=== PATIENT | female | born 1990 | race Caucasian/White ===

== ENCOUNTER 2017-11-02 19:04 | Emergency (ER) | payer MEDICAID ==
--- NOTE | 2017-11-02 19:41 | PD ---
HPI Chief Complaint Lower abdominal pain, patient was transferred from the [facility] Date Seen: Nov 02, 2017 Time Seen: 19:30 Travel History International Travel<30 Days: No Contact w/Intl Traveler<30Days: No Known Affected Area: No History of Present Illness HPI Patient 27-year-old white female 2526 weeks' gestation who sees Dr. Kam for care. She was transferred from [facility] because she presented there with abdominal pain. Patient to call Dr. Kam and she was told to go to the emergency room which she did the wrong one ,she went to [place] they called to transfer here. She denies bleeding or leakage of fluid. heart tones are reactive for 25 weeks and no contractions seen Weeks Gestation: 25 Para: 0 : 2 Miscarriage: 1 History Past Medical History Narrative Medical Hepatitis C Obstetric History Obstetric History 1 early loss Social History Narrative Social History Patient is a multidrug abuse or user is on Subutex now is seen Dr. Kam because of this situation, she smokes pack cigarettes a day Tobacco Use: Yes Substance Abuse: Yes Allergies-Medications (Allergen,Severity, Reaction): Coded Allergies: No Known Allergies (Unverified , 11/02/17) Review of Systems General / Constitutional: No: Fever, Weight Gain, Chills, Other Eyes: No: Diploplia, Blurred Vision, Visual changes, Pain, Photophobia HENT: No: Headaches, Vertigo, Lightheadedness Cardiovascular: No: Irregular Rhythm, Chest Pain or Discomfort, Palpitations, Tachycardia, Syncope, Varicosities, Edema, Cyanosis Respiratory: No: Cough, Short of Breath, Other Gastrointestinal: Abdominal Pain, No: Nausea, Vomiting, Diarrhea Genitourinary: No: Decreased Urinary Output, Oliguria Musculoskeletal: No: Limited ROM, Weakness, Cramping, Edema, Pain Skin: No Rash, No Itching, No Dryness, No Lumps, No Change in Pigmentation, No Change in Nails, No Alopecia, No Lesions Neurologic: No: Weakness, Dizziness, Syncope, Focal Abnormalities, Coordination Problem, Headache, Slurred Speech, Seizures Psychiatric: No: Depression, Suicidal Ideations, Homicidal Ideation Endocrine: No: Heat Intolerance, Cold Intolerance, Polydipsia, Polyuria, Other Physical Exam Narrative GENERAL: Well-nourished, well-developed patient. SKIN: Warm and dry. HEAD: Normocephalic and atraumatic. EYES: No scleral icterus. No injection or drainage. ENT: No nasal drainage noted. Mucous membranes pink. Airway patent. NECK: Supple, trachea midline. No JVD. CARDIOVASCULAR: Regular rate and rhythm without murmurs, gallops, or rubs. RESPIRATORY: Breath sounds equal bilaterally. No accessory muscle use. BREASTS: Bilateral exam showed no masses , no retractions, no nipple discharge. ABDOMEN/GI: Abdomen soft, non-tender, bowel sounds present, no rebound, no guarding Gravid to [25-] weeks size Fundal Height: [-25] GENITOURINARY: External Genitalia: intact and normal in appearance BUS glands: [-] Cervix: [post-] Dilatation: [-closed] Effacement: [-thick] Station: [-3] Membranes: [intact ] Uterine Contractions: [none-] FHT's: Category: [1-] Baseline: [-133] Reactive: [R-] Variability: [mod-] Decels: [-none] EXTREMITIES: No cyanosis or edema. BACK: Nontender without obvious deformity. No CVA tenderness. NEUROLOGICAL: Awake and alert. Motor and sensory grossly within normal limits. Five out of 5 muscle strength in all muscle groups. Normal speech. Data Data Orders Orders Urinalysis - C+S If Indicated (11/02/17 19:22) Comprehensive Metabolic Panel (11/02/17 19:31) Labs Urine dipstick on OB ED is negative CMP/ liver enzymes WNL MDM Interpretation(s) Patient 27-year-old white female at 25-26 weeks who presents with lower abdominal pain as transfer patient from [facility]. She denies leakage or bleeding. heart tones are very reactive 25 weeks and there are no contractions. Urinalysis negative status history is hepatitis C denies any other medical problems. She is a known drug abuser and is on Subutex now through Dr Juarez so this goes along with her hepatitis C history. We'll check a CMP to make sure liver enzymes within normal limits [CMP WNL] Plan Plan to discharge patient home to increase bedrest, increase her fluid intake to hydrate. To follow-up with Dr. Juarez take medications prescribed Diagnosis Diagnosis: Primary Impression: Abdominal cramping affecting Additional Impression: Drug abuse during Disposition: 01 DISCHARGE HOME Condition: Stable Lion Persaud II, MD Nov 02, 2017 19:41
[2017-11-02] MEDS ORDERED: PROCHLORPERAZINE INJ 10 MG/2 ML VIAL IM ONE (19:45)
[2017-11-02] MEDS ORDERED: hydrOXYzine HCL 50 MG/ML VIAL IM ONE (19:45)
[2017-11-02 20:22] LABS: BACTERIA, URINE RARE /hpf; BILIRUBIN, URINE NEG (NEG); BLOOD, URINE NEG (NEG); GLUCOSE,URINE NEG (NEG); KETONE, URINE NEG (NEG); MUCUS URINE FEW /lpf (OCC); NITRITE,URINE NEG (NEG); PH, URINE 6.5 (5.0-8.5); SQUAMOUS EPITHELIAL CELL URINE 5 /hpf (0-5); URINE COLOR YELLOW (YELLW/STRAW); URINE LEUKOCYTE ESTERASE NEG (NEG)
[2017-11-02 20:35] LABS: AST (GOT) 28 U/L (15-37); BICARBONATE 23.9 MEQ/L (21.0-32.0); BLOOD UREA NITROGEN 8 MG/DL (7-18); CHLORIDE 107 MEQ/L (98-107); CREATININE 0.56 MG/DL (0.50-1.00); GLOMERULAR FILTRATION RATE 130 ML/MIN (>89); GLUCOSE,RANDOM 81 MG/DL (74-106); SODIUM (NA) 139 MEQ/L (136-145)
[2017-11-02 20:38] LABS: ALKALINE PHOSPHATASE 81 U/L (45-117); ALT (GPT) 38 U/L (10-53); TOTAL BILIRUBIN ADULT 0.2 MG/DL (0.2-1.0)
== END 2017-11-02 20:48 | disposition home or self-care (01) ==
LOC: HOBED 19:04
DX: R10.30 Lower abdominal pain, unspecified (principal); O26.92 Pregnancy related conditions, unspecified, second trimester; O99.322 Drug use complicating pregnancy, second trimester; F19.10 Other psychoactive substance abuse, uncomplicated; F17.210 Nicotine dependence, cigarettes, uncomplicated; B19.20 Unspecified viral hepatitis C without hepatic coma; O98.412 Viral hepatitis complicating pregnancy, second trimester; Z3A.25 25 weeks gestation of pregnancy
CPT/HCPCS: 36415; 80053; 81001; 96372; 99284; J3410

== ENCOUNTER 2018-01-29 14:06 | Inpatient (IN) | payer MEDICAID ==
[2018-01-29] VITALS (7 sets, daily range): BP systolic 102–113; BP diastolic 57–60; PULSE 66–71; RESP 17–18; TEMP 98.1
--- NOTE | 2018-01-29 15:00 | PD.PN.STU ---
Subjective Remarks 27 yo hernandez at 39 weeks sent over to L&D from clinic today due to fundal height inconsistent with dates and US suggestive of isolated chronic stable abruption. She has had PNC with Dr. Kam. Reports movement and occasional contractions. No loss of fluid, vaginal bleeding, nausea/vomiting, headaches. PMH includes history of polysubstance abuse currently on MAT with suboxone, Hepatitis C, anxiety/depression, Shingles outbreak during , and tobacco use less than 1 ppd. OB history includes spontaneous in 2006 without complications. Objective Vitals GENERAL: Well-nourished, well-developed patient. CARDIOVASCULAR: Regular rate and rhythm without murmurs, gallops, or rubs. RESPIRATORY: Breath sounds equal bilaterally. No accessory muscle use. ABDOMEN/GI: Abdomen soft, non-tender. Fundus: [35 cm] GENITOURINARY: External Genitalia: intact and normal in appearance Cervix: [-] Dilatation: [1cm] Effacement: [-] Station: [-] Presentation: [-] Membranes: [-] Uterine Contractions: [occasional] FHT's: Category: [category 1 strip] Baseline: [-] Reactive: [-] Variability: [-] Decels: [-] EXTREMITIES: No cyanosis or edema, non-tender, without signs of DVT. A/P Assessment and Plan 27 yo hernandez at 39 weeks 1. Third trimester 2. US findings suggestive of chronic stable abruption 3. History of substance abuse currently on MAT with suboxone 4. Hepatitis C 5. Depression/anxiety 6. History of Shingles 7. Tobacco use (<1 ppd) Plan: 1. Admit to L&D 2. Place Cervidil and monitor cervical changes 3. Plan for vaginal delivery 4. Discussed with patient the possibility of if baby does not tolerate labor Reba Schmidt M3 Jan 29, 2018 15:00
[2018-01-29] MEDS ORDERED: LACTATED RINGER'S 1000 ML INJ 1,000 ML IV PRN (15:53)
[2018-01-29] MEDS ORDERED: SODIUM CHLORID 0.9% 500 ML INJ 500 ML IV PRN (16:00)
[2018-01-29] MEDS ORDERED: DINOPROSTONE 10 MG VAG INSERT VAGINAL ONE (16:00)
[2018-01-29] MEDS ORDERED: MINERAL OIL 10 ML VIAL TOPICAL PRN (16:00)
[2018-01-29] MEDS ORDERED: CITRIC ACID-SODIUM CITRATE LIQ 30 ML UDC PO SCH (16:00)
[2018-01-29] MEDS ORDERED: SODIUM CHLORIDE 0.9% FLUSH 10 ML FLUSH IV FLUSH PRN (16:00)
[2018-01-29] MEDS ORDERED: LIDOCAINE HCL 1% 50 ML VIAL INFIL PRN (16:00)
[2018-01-29] MEDS ORDERED: OXYTOCIN 30 UNITS-500ML PREMIX 500 ML IV ONE (16:00)
[2018-01-29] MEDS ORDERED: LIDOCAINE HCL 1% 50 ML VIAL I-DERMAL PRN (16:00)
[2018-01-29] MEDS ORDERED: SODIUM CHLOR 0.9% 1000 ML INJ 1,000 ML IV PRN (16:13)
[2018-01-29 16:22] LABS: AUTOMATED NEUTROPHIL # 8.9 TH/MM3 (1.8-7.7); BASOPHIL % 0.3 % (0.0-2.0); EOSINOPHIL # 0.1 TH/MM3 (0-0.4); EOSINOPHIL % 0.8 % (0.0-4.0); HEMATOCRIT 36.2 % (35.0-46.0); HEMOGLOBIN 12.4 GM/DL (11.6-15.3); LYMPH % 20.6 % (9.0-44.0); LYMPHOCYTE # 2.5 TH/MM3 (1.0-4.8); MEAN CELL VOLUME 88.7 FL (80.0-100.0); MEAN CORPUSCULAR HEMOGLOBIN 30.4 PG (27.0-34.0); MEAN CORPUSCULAR HGB CONC 34.3 % (32.0-36.0); MONO % 5.4 % (0.0-8.0); MONOCYTE # 0.7 TH/MM3 (0-0.9); NEUT % 72.9 % (16.0-70.0); PLATELET COUNT 214 TH/MM3 (150-450); RED BLOOD COUNT 4.08 MIL/MM3 (4.00-5.30); RED CELL DISTRIBUTION WIDTH 14.2 % (11.6-17.2); WHITE BLOOD COUNT 12.2 TH/MM3 (4.0-11.0)
[2018-01-29] MEDS: LACTATED RINGER'S 1000 ML INJ 1,000 ML IV SCH (16:24)
[2018-01-29] MEDS: ALPRAZolam 0.5 MG TAB PO SCH ×2 (16:30→22:00)
[2018-01-29 16:39] LABS: BILIRUBIN, URINE NEG (NEG); BLOOD, URINE NEG (NEG); GLUCOSE,URINE NEG (NEG); KETONE, URINE NEG (NEG); MUCUS URINE FEW /lpf (OCC); NITRITE,URINE NEG (NEG); SQUAMOUS EPITHELIAL CELL URINE 1 /hpf (0-5); URINE COLOR LIGHT-YELLOW (YELLW/STRAW); URINE LEUKOCYTE ESTERASE NEG (NEG)
[2018-01-29] MEDS ORDERED: BUPRENORPHINE HCL 8 MG SUBLINGUAL TAB SL SCH (17:00)
[2018-01-29] MEDS: SODIUM CHLORIDE 0.9% FLUSH 10 ML FLUSH IV FLUSH SCH (21:00)
[2018-01-29] MEDS: NICOTINE 21 MG/24 HR PATCH T-DERMAL SCH (21:59)
[2018-01-29] MEDS: BUPRENORPHINE HCL 8 MG SUBLINGUAL TAB SL SCH (22:00)
[2018-01-29] MEDS: ACETAMINOPHEN 325 MG TAB PO PRN (22:01)
[2018-01-30] VITALS (18 sets, daily range): BP systolic 83–139; BP diastolic 17–73; PULSE 60–79; RESP 16–22; TEMP 97.7–98.4; O2SAT 97–100
[2018-01-30] MEDS: ALPRAZolam 0.5 MG TAB PO SCH (05:46)
[2018-01-30] MEDS: LACTATED RINGER'S 1000 ML INJ 1,000 ML IV SCH ×3 (05:46→20:28)
[2018-01-30] MEDS: BUPRENORPHINE HCL 8 MG SUBLINGUAL TAB SL SCH ×2 (05:46→17:55)
[2018-01-30] MEDS ORDERED: OXYTOCIN 30 UNITS/NS 500ML PREMIX IV PRN (08:15)
[2018-01-30] MEDS: SODIUM CHLORIDE 0.9% FLUSH 10 ML FLUSH IV FLUSH SCH (09:00)
[2018-01-30] MEDS: REMOVE OLD PATCH T-DERMAL SCH (09:00)
[2018-01-30] MEDS: NICOTINE 21 MG/24 HR PATCH T-DERMAL SCH (09:22)
[2018-01-30] MEDS ORDERED: LACTATED RINGER'S 1000 ML INJ 1,000 ML IV ONE ×2 (11:56→12:00)
[2018-01-30] MEDS ORDERED: ONDANSETRON HCL 4 MG/2 ML VIAL IV ONE (12:00)
[2018-01-30] MEDS ORDERED: OXYTOCIN 10 UNIT/ML AMP IV ONE (12:00)
[2018-01-30] MEDS ORDERED: DEXAMETHASONE SOD PHOS 4 MG/ML VIAL IV ONE (12:00)
[2018-01-30] MEDS ORDERED: LACTATED RINGER'S 1000 ML INJ 1,000 ML IV SCH (12:26)
[2018-01-30] MEDS ORDERED: ACETAMINOPHEN 1000 MG/100 ML 100 ML IV ONE ×2 (12:52→13:15)
[2018-01-30] MEDS ORDERED: MORPHINE SULFATE PF 5 MG/10 ML VIAL ONE (12:52)
[2018-01-30] MEDS ORDERED: EPIDURAL-DIPHENHYDRAMINE HCL 50 MG CAP PO PRN (13:02)
[2018-01-30] MEDS ORDERED: EPIDURAL-NALOXONE HCL 0.4 MG/ML AMP IV PUSH PRN (13:02)
[2018-01-30] MEDS ORDERED: EPIDURAL-DO NOT ADMINISTER ANTICOAGULANTS PRN (13:02)
[2018-01-30] MEDS ORDERED: EPIDURAL-NO SYSTEMIC NARCOTICS PRN (13:02)
[2018-01-30] MEDS ORDERED: EPIDURAL-DIPHENHYDRAMINE HCL 50 MG/ML VIAL IV PUSH PRN (13:02)
--- NOTE | 2018-01-30 13:10 | PD.LABORPN ---
Subjective Subjective With only mild discomfort during contractions, fetus is showing decreased BTB and some decels at only one cm. Objective Vital Signs Vital Signs Date Time Temp Pulse Resp B/P (MAP) Pulse Ox O2 Delivery O2 Flow Rate FiO2 01/30/18 10:06 75 108/66 (80) 01/30/18 08:19 79 100/58 (72) 01/30/18 08:18 97.9 18 01/30/18 06:35 78 84/17 (39) 01/30/18 06:35 73 102/63 (76) Objective cervix unchanged strip category 2 and non reassuring while non emergent Weeks Gestation: 38 Gest Age Assessed Date: Jan 30, 2018 Gest Age Assessed Time: 13:05 Pt started active labor?: No Active labor start date: Jan 30, 2018 Active labor start time: 11:00 Medical induction of labor?: Yes Medical induction start date: Jan 30, 2018 Artificial rupture of membrane: No Assessment/Plan Assessment and Plan we have decided to proceed with primary section for 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 have discussed STEPHANIE syndrome with mom and FOB proceed soon. Jess Kam MD Jan 30, 2018 13:09
[2018-01-30] MEDS ORDERED: OXYTOCIN 30 UNITS-500ML PREMIX 500 ML IV ONE (13:15)
[2018-01-30] MEDS ORDERED: SODIUM CHLORIDE 0.9% FLUSH 10 ML FLUSH IV FLUSH PRN (13:15)
[2018-01-30] MEDS ORDERED: ONDANSETRON HCL 4 MG/2 ML VIAL IV PUSH PRN (13:15)
[2018-01-30] MEDS ORDERED: SIMETHICONE 80 MG CHEWABLE TAB PO PRN (13:15)
[2018-01-30] MEDS ORDERED: CITRIC ACID-SODIUM CITRATE LIQ 30 ML UDC PO SCH (13:30)
[2018-01-30] MEDS ORDERED: DEXAMETHASONE SOD PHOS 4 MG/ML VIAL ONE (13:58)
[2018-01-30] MEDS ORDERED: BUPIVACAINE HCL PF 0.25% 30 ML VIAL ONE (13:58)
[2018-01-30] MEDS ORDERED: ALPRAZolam 1 MG TAB PO SCH (14:00)
[2018-01-30] MEDS: ALPRAZolam 1 MG TAB PO SCH (17:56)
[2018-01-30] MEDS ORDERED: OXYTOCIN 30 UNITS-500ML PREMIX 500 ML IV PRN (18:15)
[2018-01-30] MEDS: ACETAMINOPHEN 325 MG TAB PO PRN (20:15)
[2018-01-30] MEDS: KETOROLAC TROMETHAMINE 60 MG/2 ML (IM) VIAL IM PRN (20:20)
[2018-01-30] MEDS ORDERED: SODIUM CHLORIDE 0.9% FLUSH 10 ML FLUSH IV FLUSH SCH (21:00)
[2018-01-31 00:26] VITALS: BP 91/47; PULSE 52; RESP 18
[2018-01-31] MEDS: ALPRAZolam 1 MG TAB PO SCH ×5 (02:05→23:41)
[2018-01-31] MEDS: ACETAMINOPHEN 325 MG TAB PO PRN ×3 (02:06→13:06)
[2018-01-31] MEDS: LACTATED RINGER'S 1000 ML INJ 1,000 ML IV SCH (04:10)
[2018-01-31] MEDS: KETOROLAC TROMETHAMINE 60 MG/2 ML (IM) VIAL IM PRN ×2 (04:11→13:15)
[2018-01-31 05:00] VITALS: BP 83/57; PULSE 61; RESP 18; TEMP 98.1; O2SAT 97
[2018-01-31 07:45] VITALS: BP 86/44; PULSE 72; RESP 16; TEMP 97.7
[2018-01-31] MEDS: BUPRENORPHINE HCL 8 MG SUBLINGUAL TAB SL SCH ×3 (08:38→19:14)
[2018-01-31] MEDS: REMOVE OLD PATCH T-DERMAL SCH (08:39)
[2018-01-31] MEDS: NICOTINE 21 MG/24 HR PATCH T-DERMAL SCH (08:39)
[2018-01-31 08:43] LABS: AUTOMATED NEUTROPHIL # 11.6 TH/MM3 (1.8-7.7); BASOPHIL % 0.1 % (0.0-2.0); EOSINOPHIL # 0.1 TH/MM3 (0-0.4); EOSINOPHIL % 0.3 % (0.0-4.0); HEMATOCRIT 29.2 % (35.0-46.0); LYMPH % 18.1 % (9.0-44.0); LYMPHOCYTE # 2.8 TH/MM3 (1.0-4.8); MEAN CELL VOLUME 88.8 FL (80.0-100.0); MEAN CORPUSCULAR HEMOGLOBIN 30.4 PG (27.0-34.0); MEAN CORPUSCULAR HGB CONC 34.3 % (32.0-36.0); MONO % 7.2 % (0.0-8.0); MONOCYTE # 1.1 TH/MM3 (0-0.9); NEUT % 74.3 % (16.0-70.0); PLATELET COUNT 176 TH/MM3 (150-450); RED BLOOD COUNT 3.29 MIL/MM3 (4.00-5.30); RED CELL DISTRIBUTION WIDTH 14.2 % (11.6-17.2); WHITE BLOOD COUNT 15.7 TH/MM3 (4.0-11.0)
[2018-01-31] MEDS: SODIUM CHLORIDE 0.9% FLUSH 10 ML FLUSH IV FLUSH SCH (08:50)
[2018-01-31] MEDS: DOCUSATE SODIUM 50 MG/SENNA 8.6 MG TAB PO PRN (09:50)
--- NOTE | 2018-01-31 14:05 | HHI.OB ---
Subjective Post Operative Day: 1 Remarks Doing well Can you fix my medicine so I do not feel badly Bleeding is good Baby is in the NICU and doing ok now...May be having withdrawals. Objective Vitals/I&O Vital Signs Date Time Temp Pulse Resp B/P (MAP) Pulse Ox O2 Delivery O2 Flow Rate FiO2 01/31/18 07:45 72 86/44 (58) 01/31/18 07:45 97.7 16 01/31/18 05:00 61 18 01/31/18 05:00 98.1 97 01/31/18 05:00 83/57 (66) 01/31/18 00:26 52 18 91/47 (62) 01/30/18 23:54 83/45 (58) 01/30/18 23:53 98.0 72 20 84/39 (54) 98 01/30/18 20:00 98.3 01/30/18 20:00 62 18 103/55 (71) 97 01/30/18 17:00 98.1 16 01/30/18 17:00 61 117/73 (88) 01/30/18 15:23 97.7 01/30/18 15:19 22 135/71 (92) 99 01/30/18 15:18 61 01/30/18 15:01 60 20 123/69 (87) 100 01/30/18 14:46 61 18 139/66 (90) 100 01/30/18 14:32 100 01/30/18 14:31 20 01/30/18 14:31 69 133/66 (88) 01/30/18 14:30 66 18 120/66 (84) 100 Result Diagram: 01/31/18 0713 Objective Remarks GENERAL: Well-nourished, well-developed patient. CARDIOVASCULAR: Regular rate and rhythm without murmurs, gallops, or rubs. RESPIRATORY: Breath sounds equal bilaterally. No accessory muscle use. ABDOMEN/GI: Abdomen soft, non-tender, bowel sounds present. Incision: bandage is dry. Fundus: Firm, non-tender at umbilicus. GENITOURINARY: Light to moderate bleeding. EXTREMITIES: No cyanosis or edema, non-tender, without signs of DVT. Medications and IVs Current Medications Medications (Trade) Dose Ordered Sig/Gavino Route Start Time Stop Time Status Last Admin (Habitrol 21 Mg Patch.24 Hr) 1 patch DAILY T-DERMAL 01/29/18 21:24 01/31/18 08:39 Miscellaneous Information 1 DAILY T-DERMAL 01/29/18 21:24 01/31/18 08:39 (Tylenol) 650 mg Q4H PRN PO 01/29/18 22:00 01/31/18 13:06 (Bicitra Liq) 30 ml WOOD SHOP TEACHER PO 01/30/18 13:30 02/03/18 13:29 Cefazolin Sodium 1000 mg/Sodium Chloride 100 ml @ 200 mls/hr WOOD SHOP TEACHER IV 01/30/18 13:00 02/03/18 12:59 Lactated Ringer's 1,000 ml @ 100 mls/hr Q10H IV 01/30/18 18:10 01/31/18 14:09 01/30/18 20:28 Oxytocin 500 ml @ 100 mls/hr UNSCH X1 PRN IV 01/30/18 18:15 01/31/18 18:14 (Mylicon Chew) 80 mg QID PRN PO 01/30/18 13:15 (Amisha-Colace) 2 tab Q12H PRN PO 01/30/18 13:15 01/31/18 09:50 (M-M-R Ii Inj) 0.5 ml ONCE ONCE SQ 01/31/18 16:00 01/31/18 16:01 (Boostrix Inj) 0.5 ml ONCE ONCE IM 01/31/18 16:00 01/31/18 16:01 (Zofran Inj) 4 mg Q6H PRN IV PUSH 01/30/18 13:15 Assessment/Plan Problem List: (1) Placenta abruption, delivered, current hospitalization ICD Codes: O45.90 - Premature separation of placenta, unspecified, unspecified trimester (2) Xanax use disorder, moderate ICD Codes: F13.20 - Sedative, hypnotic or anxiolytic dependence, uncomplicated (3) delivery delivered ICD Codes: O82 - Encounter for delivery without indication (4) Narcotic drug use ICD Codes: F11.90 - Opioid use, unspecified, uncomplicated Assessment and Plan POD #1 Pain and anxiety will readjust her meds like she takes them at home and will add motrin, Will try to avoid narcotics at this time. Anemia will start fe soon. Narcotic and xanax dependent. will follow up with her . Kendal Potter MD Jan 31, 2018 14:05
--- NOTE | 2018-01-31 14:06 | HHI.DCPOC ---
Discharge Care Plan Diagnosis: (1) delivery delivered (2) Placenta abruption, delivered, current hospitalization (3) Xanax use disorder, moderate (4) Narcotic drug use Report Symptoms to Your Doctor -Temperature above 100.5 degrees -Redness, of incision or excessive or foul smelling drainage -Unusual pain or calf pain -Increased vaginal bleeding -Painful or difficulty urinating -Feelings of extreme sadness or anxiety after 2 weeks Goals to Promote Your Health * To prevent worsening of your condition and complications * To maintain your health at the optimal level Directions to Meet Your Goals Take your medications as prescribed Follow your dietary instruction Follow activity as directed Ensure plenty of rest for recovery Drink fluids for hydration Keep your appointments as scheduled Take your immunizations and boosters as scheduled If your symptoms worsen call your PCP, if no PCP go to Urgent Care Center or Emergency Room Smoking is Dangerous to Your Health. Avoid second hand smoke Call the 24-hour crisis hotline for domestic abuse at Kendal Potter MD Jan 31, 2018 14:05
[2018-01-31 14:30] VITALS: RESP 18
[2018-01-31] MEDS ORDERED: DIPHTH/TETANUS/ACEL PERTUSSIS (BOOSTER) 0.5 ML VIAL/PFS IM ONE (16:00)
[2018-01-31] MEDS ORDERED: MEASLES, MUMPS, RUBELLA VACCINE 0.5 ML VIAL SQ ONE (16:00)
[2018-01-31] MEDS: IBUPROFEN 600 MG TAB PO SCH ×2 (19:14→23:41)
[2018-01-31 19:20] VITALS: BP 104/63; PULSE 70; RESP 18; TEMP 97.9
[2018-02-01] MEDS: ALPRAZolam 1 MG TAB PO SCH ×5 (03:58→20:59)
[2018-02-01] MEDS: IBUPROFEN 600 MG TAB PO SCH ×3 (05:57→19:52)
[2018-02-01] MEDS: ACETAMINOPHEN 325 MG TAB PO PRN (05:58)
[2018-02-01] MEDS: BUPRENORPHINE HCL 8 MG SUBLINGUAL TAB SL SCH ×3 (05:58→19:52)
[2018-02-01 08:35] VITALS: BP 108/69; PULSE 63; RESP 16; TEMP 97.9
[2018-02-01] MEDS: NICOTINE 21 MG/24 HR PATCH T-DERMAL SCH (08:44)
[2018-02-01] MEDS: REMOVE OLD PATCH T-DERMAL SCH (08:46)
--- NOTE | 2018-02-01 09:27 | MP ---
cc: Jess Kam MD DATE OF OPERATION: 01/30/2018 PREOPERATIVE DIAGNOSIS: A 38-1/2 week intrauterine on maintenance therapy for opioid addiction with buprenorphine 24 mg per day, chronic abruption noted on surveillance biophysical profiles with a chronic low-grade pain and decision was made to proceed with delivery. Initial Pitocin induction not tolerated. POSTOPERATIVE DIAGNOSIS: A 38-1/2 week intrauterine on maintenance therapy for opioid addiction with buprenorphine 24 mg per day, chronic abruption noted on surveillance biophysical profiles with a chronic low-grade pain and decision was made to proceed with delivery. Initial Pitocin induction not tolerated. Small abruption confirmed. PROCEDURE PERFORMED: Primary low transverse segment section. ANESTHESIA: Spinal with Duramorph and postoperative TAP. SURGEON: Jess Kam MD KNITTED CLOTH EXAMINER: Nico Patel, third year medical student. FINDINGS: A living female with Apgars of 8 at 1 and 8 at 5 was delivered from [facility] with clear fluid and a loose nuchal cord. The placenta was delivered intact and did show a centralized area of old dark red/black clot. It did not encompass more than 15% of the placental attachment. ESTIMATED BLOOD LOSS: 500 mL COUNTS: Sponge, instrument and needle count were correct. DISPOSITION: Baby did go to the NICU for support and mom did very well. DESCRIPTION OF PROCEDURE: The patient was identified as Ms. Shadia Rai and she was appraised of the indications of the surgery and the risks, benefits, and alternatives. She was taken to the operating room. Her spinal was administered. She was prepped and draped in the usual sterile fashion with a Mays in place and sequential stockings on. A timeout was performed with all in attendance. She had received 1 gram Ancef IV. She was prepped and draped and, after assuring adequate analgesia, a Pfannenstiel incision was made and carried anterior to the rectus fascia. The rectus fascia was incised with a knife and taken off the rectus muscle. The rectus muscle was in the midline. The parietal peritoneum was entered sharply. A bladder flap was created off the lower uterine segment and an incision made into the intrauterine cavity. The was delivered with the findings as noted above. The cord was clamped after 45 seconds, cut and then the infant was handed to the neonatology team and attending. The placenta was delivered manually intact with a 3-vessel cord. Uterus was exteriorized, cleaned with a lap sponge and closed with chromic in a running interlocking fashion with a second horizontal imbricating layer. The uterus was then replaced in the abdominal cavity and checked carefully for hemostasis. All edges were hemostatic. Then, the rectus muscle was approximated to prevent a rectus diastasis. The fascia was closed with #1 Vicryl, the subcutaneous layer was closed with 3-0 plain and the skin was closed with 4-0 Vicryl on a Elio needle. Estimated blood loss was 500 mL Sponge, instrument and needle count were correct. She tolerated the procedure well and went to the recovery room stable. Jess Kam MD [facility] , 04:21 PM , 04:35 PM
[2018-02-01 13:17] VITALS: BP 110/69; PULSE 78
[2018-02-01 13:18] VITALS: RESP 16
[2018-02-01 14:50] VITALS: BP 112/73; PULSE 69; RESP 16; O2SAT 100
[2018-02-01] MEDS: DOCUSATE SODIUM 50 MG/SENNA 8.6 MG TAB PO PRN (19:51)
[2018-02-02] MEDS: IBUPROFEN 600 MG TAB PO SCH ×2 (01:31→11:12)
[2018-02-02] MEDS: ALPRAZolam 1 MG TAB PO SCH ×4 (01:31→11:11)
[2018-02-02] MEDS: BUPRENORPHINE HCL 8 MG SUBLINGUAL TAB SL SCH ×2 (05:46→11:39)
[2018-02-02 08:00] VITALS: BP 102/67; PULSE 82; RESP 20; TEMP 97.9; O2SAT 98
--- NOTE | 2018-02-02 08:13 | HHI.OB ---
Subjective Post Operative Day: 3 Remarks Doing well and very excited about her daughter nursing going well daughter scoring 6-7 will do stay close and then stay in PEDs concerned about pain management Objective Vitals/I&O Vital Signs Date Time Temp Pulse Resp B/P (MAP) Pulse Ox O2 Delivery O2 Flow Rate FiO2 02/01/18 14:50 69 16 112/73 (86) 100 02/01/18 13:18 16 02/01/18 13:17 78 110/69 (83) 02/01/18 08:35 97.9 02/01/18 08:35 63 16 108/69 (82) Result Diagram: 01/31/18 0713 Objective Remarks GENERAL: Well-nourished, well-developed patient. CARDIOVASCULAR: Regular rate and rhythm without murmurs, gallops, or rubs. RESPIRATORY: Breath sounds equal bilaterally. No accessory muscle use. breasts mildly engorged no mastitis nipples good ABDOMEN/GI: Abdomen soft, non-tender, bowel sounds present. Incision: clean and dry Fundus: Firm, non-tender at umbilicus. GENITOURINARY: Light to moderate bleeding. EXTREMITIES: No cyanosis or edema, non-tender, without signs of DVT. Medications and IVs Current Medications Medications (Trade) Dose Ordered Sig/Gavino Route Start Time Stop Time Status Last Admin (Habitrol 21 Mg Patch.24 Hr) 1 patch DAILY T-DERMAL 01/29/18 21:24 02/01/18 08:44 Miscellaneous Information 1 DAILY T-DERMAL 01/29/18 21:24 02/01/18 08:46 (Tylenol) 650 mg Q4H PRN PO 01/29/18 22:00 02/01/18 05:58 (Bicitra Liq) 30 ml VENDOR MANAGER PO 01/30/18 13:30 02/03/18 13:29 Cefazolin Sodium 1000 mg/Sodium Chloride 100 ml @ 200 mls/hr VENDOR MANAGER IV 01/30/18 13:00 02/03/18 12:59 (Mylicon Chew) 80 mg QID PRN PO 01/30/18 13:15 (Amisha-Colace) 2 tab Q12H PRN PO 01/30/18 13:15 02/01/18 19:51 (Zofran Inj) 4 mg Q6H PRN IV PUSH 01/30/18 13:15 (Xanax) 1 mg Q4HR PO 01/31/18 16:00 02/02/18 05:46 (Buprenorphine) 8 mg DAILY@0600,1200,1800 SL 01/31/18 18:00 02/02/18 05:46 (Motrin) 600 mg Q6HR PO 01/31/18 18:00 02/02/18 01:31 Assessment/Plan Problem List: (1) Placenta abruption, delivered, current hospitalization ICD Codes: O45.90 - Premature separation of placenta, unspecified, unspecified trimester (2) Xanax use disorder, moderate ICD Codes: F13.20 - Sedative, hypnotic or anxiolytic dependence, uncomplicated (3) delivery delivered ICD Codes: O82 - Encounter for delivery without indication (4) Narcotic drug use ICD Codes: F11.90 - Opioid use, unspecified, uncomplicated Assessment and Plan POD #1 Pain and anxiety will readjust her meds like she takes them at home and will add motrin, Will try to avoid narcotics at this time. Anemia will start fe soon. Narcotic and xanax dependent. will follow up with her . Discharge Planning POD 3 doing well and ready for discharge will use 800 motrin with food and if necessary take additional subutex for pain rather than additional short acting opioid rto 1 week Jess Kam MD Feb 02, 2018 08:13
[2018-02-02] MEDS ORDERED: XANA1TAB2 PO (08:15)
[2018-02-02] MEDS ORDERED: BUPR8SUB SL (08:16)
[2018-02-02] MEDS ORDERED: IBUP-232 PO (08:17)
[2018-02-02] MEDS: ACETAMINOPHEN 325 MG TAB PO PRN (11:12)
== END 2018-02-02 11:46 | disposition home or self-care (01) | DRG 765 ==
LOC: EDSTATUS 14:09 → H2EB 14:10 → H1EA 01-30 16:07
PROVIDERS: ADMIT Obstetrics & Gynecology; ATTEND Obstetrics & Gynecology
PROC: 3E0P7VZ Introduction of Hormone into Female Reproductive, Via Natural or Artificial Opening (ICD-10-PCS; 2018-01-29)
PROC: 10D00Z1 Extraction of Products of Conception, Low, Open Approach (ICD-10-PCS; principal; 2018-01-30)
DX: O99.324 Drug use complicating childbirth (principal); F19.10 Other psychoactive substance abuse, uncomplicated; F13.20 Sedative, hypnotic or anxiolytic dependence, uncomplicated; O45.8X3 Other premature separation of placenta, third trimester; O98.413 Viral hepatitis complicating pregnancy, third trimester; B19.20 Unspecified viral hepatitis C without hepatic coma; O99.02 Anemia complicating childbirth; D64.9 Anemia, unspecified; Z37.0 Single live birth; Z3A.39 39 weeks gestation of pregnancy
CPT/HCPCS: 80307; 81001; 85025; 86900; 86901; 90715; J0131; J1100; J1885; J2274; J2405; J2590; J7120